=== PATIENT | female | born 1985 | race Caucasian/White ===

== ENCOUNTER 2025-07-27 10:24 | Emergency (ER) | payer SELFPAY ==
[2025-07-27 10:56] LABS: Pregnancy Test - Urine (BHCG) Negative (Negative); Pregu Control Background? CLEAR/WHITE (CLR/WHITE); Pregu Control Bar Appear? YES (CONTROL BAR)
[2025-07-27 11:03] LABS: Bacteria/HPF None Seen HPF (None Seen); CAUTI Indications for Culture Pelvic or flank pain; Glucose, Urine (Dipstick) Normal (Negative); Leukocyte 25 Leu/uL (Negative); Protein, Urine (Dipstick) Negative (Neg-Trace); RBC/HPF 0-3 HPF (0-3); Specific Gravity, Urine 1.005 (1.002-1.036); WBC/HPF 0-3 HPF (0-3)
[2025-07-27 11:08] LABS: Urine Culture Reflex No No
[2025-07-27 12:00] LABS: #Basophils Less than 0.03 10x3/uL (0.0-0.2); #Eosinophils 0.11 10x3/uL (0.0-0.7); #Monocytes 0.42 10x3/uL (0.11-0.59); #Neutrophils 4.17 10x3/uL (1.40-6.50); %Basophils 0.3 % (0.0-1.0); %Eosinophils 1.7 % (0.0-10.0); %Lymphocytes 25.7 % (21.0-51.0); %Monocytes 6.6 % (0.0-10.0); %Neutrophils 65.4 % (42.0-75.0); Hematocrit 44.7 % (36.0-47.0); Hemoglobin 14.4 g/dL (12.0-16.0); Mean Corpuscular Hemoglobin 31.2 pg (27.0-31.0); Mean Corpuscular Volume 96.8 fL (78.0-98.0); Platelet Count 252 10x3/uL (130-400); Red Blood Cell (RBC) Count 4.62 mill/uL (4.20-5.40); White Blood Cell (WBC) Count 6.38 10x3/uL (4.8-10.8)
[2025-07-27 12:20] LABS: ALT (SGPT) 14 U/L (Less than 34); AST (SGOT) 21 U/L (11-34); Albumin 4.6 g/dL (3.1-4.5); Alkaline Phosphatase 85 U/L (40-110); Anion Gap 12 mmol/L (10-20); BUN (Urea Nitrogen) 6 mg/dL (7.0-18.7); Bilirubin, Total 1.0 mg/dL (0.3-1.2); Calc. Creatinine Clearance 0 mL/min (70-130); Calcium 9.8 mg/dL (7.8-10.44); Carbon Dioxide 25 mmol/L (22-29); Chloride 105 mmol/L (98-107); Globulin 3.1 g/dL (2.4-3.5); Glucose 92 mg/dL (70-105); Lipase 15 U/L (8-78); Potassium 4.0 mmol/L (3.5-5.1); Sodium 138 mmol/L (136-145)
[2025-07-27] MEDS ORDERED: Dicyclomine 20 MG TAB ONE (12:25)
[2025-07-27] MEDS ORDERED: Lidocaine Viscous Sol 2% 15 ml UD Cup ONE (12:25)
[2025-07-27] MEDS ORDERED: Milk Of Magnesia 30 ML UDCUP ONE (12:26)
[2025-07-27] MEDS ORDERED: Ketorolac Tromethamine 30 MG (1 mL) VIAL ONE (12:34)
[2025-07-27] MEDS ORDERED: Iopamidol-370 76% 500 ML MDV (1 ML CHARGE) ONE (12:51)
[2025-07-28 12:06] LABS: Chlamydia by PCR, Vaginal Swab Not Detected (NotDetected); GC by PCR, Vaginal Swab Not Detected (NotDetected)
== END 2025-07-27 14:21 | disposition home or self-care (01) ==
LOC: ERS 10:24
DX: N39.0 Urinary tract infection, site not specified (principal); N94.89 Other specified conditions associated with female genital organs and menstrual cycle
CPT/HCPCS: 71045; 74177; 80053; 81001; 81025; 83690; 84484; 85025; 87480; 87491; 87510; 87591; 87660; 93005; 96374; J1885; Q9967